=== PATIENT | female | born 1960 | race Caucasian/White ===

== ENCOUNTER → 2016-12-01 | Outpatient (REF) | payer OTHER | LOC: M SFHCLERA 20:34 | PROVIDERS: ATTEND Physician Assistant | DX: L29.0 Pruritus ani (principal) ==

== ENCOUNTER → 2016-12-03 | Outpatient (REF) | payer OTHER | LOC: M SFHCLERA 09:39 | PROVIDERS: ATTEND Physician Assistant | DX: L29.0 Pruritus ani (principal) ==

== ENCOUNTER 2018-07-31 05:47 | Day surgery (SDC) | payer OTHER ==
[2018-07-31] MEDS ORDERED: ACETAMINOPHEN 325 MG TAB PO (06:00)
[2018-07-31] MEDS: PHENYLEPHRINE 2.5% OPHTH SOL 2ML OD (06:15)
[2018-07-31] MEDS: OFLOXACIN 0.3 % (OCUFLOX) OPTH SOL 5ML OD (06:15)
[2018-07-31] MEDS: TROPICAMIDE 1% OPHTH SOLN 2ML OD (06:15)
[2018-07-31] MEDS: CYCLOPENTOLATE 2% OPHTH SOLN 2ML BTL OD (06:15)
[2018-07-31] MEDS: ACETYLCHOLINE OPHTH SOLN 1% 2ML (MIOCHOL-E) As Ordered (06:34)
[2018-07-31] MEDS ORDERED: PHENYLEPHRINE HCL 10 % OPHTH. SOL 5ML OD (07:00)
[2018-07-31] MEDS ORDERED: PROPARACAINE 0.5% OPHTH SOL 15ML OD ×2 (07:01→08:00)
[2018-07-31] MEDS ORDERED: PROPARACAINE 0.5% OPHTH SOL 15ML As Ordered ×2 (07:15→07:17)
[2018-07-31] MEDS ORDERED: MIDAZOLAM INJ 2 MG/2 ML VIAL (J2250) As Ordered ×2 (07:34→07:40)
[2018-07-31] MEDS: POVIDONE-IODINE 5% OPHTH PREP SOL 30ML As Ordered (07:38)
[2018-07-31] MEDS ORDERED: fentaNYL 100 MCG/2 ML INJECTION (J3010) As Ordered (07:40)
[2018-07-31] MEDS: CEFUROXIME 1MG/0.1ML INTRACAMERAL INJ As Ordered (07:44)
[2018-07-31] MEDS: LIDOCAINE 1% SDV 5 ML VIAL As Ordered (07:44)
[2018-07-31] MEDS: BALANCED SALT IRRIGATION SOLUTION 500ML BAG (FOR OR EYE MACHINE) As Ordered (07:45)
[2018-07-31] MEDS: HEALON DUET (HEALON 10MG/ML 0.55ML & HEALON ENDOCOAT 30MG/ML 0.85ML) As Ordered (07:45)
[2018-07-31] MEDS ORDERED: KETOROLAC 0.5% OPHTH SOLN XX (08:00)
[2018-07-31] MEDS ORDERED: AcetaZOLAMIDE 500 MG ER CAP PO (08:00)
[2018-07-31] MEDS ORDERED: TRIMETHOBENZAMIDE 300 MG CAP PO (08:00)
== END 2018-07-31 08:40 | disposition home or self-care (01) ==
LOC: M SDC 05:47
DX: H25.11 Age-related nuclear cataract, right eye (principal); K21.9 Gastro-esophageal reflux disease without esophagitis; I10 Essential (primary) hypertension; F41.9 Anxiety disorder, unspecified; G47.30 Sleep apnea, unspecified; Z79.899 Other long term (current) drug therapy; F17.210 Nicotine dependence, cigarettes, uncomplicated
CPT/HCPCS: 66984

== ENCOUNTER 2019-07-01 10:47 | Emergency (ER) | payer OTHER ==
[~2019-07-01] VITALS: Ht 162.6 cm; Wt 88.6 kg
[~2019-07-01 10:47] MED LIST: AMLO-360 PO; BUPR150T5 PO; HYDR50TAB PO; IBUP80TA; INCR1INH PO; LANS30CA PO; POTA20TA6 PO; PRAM1TAB7 PO
[2019-07-01] MEDS ORDERED: LANS30CA93 (10:58)
[2019-07-01] MEDS ORDERED: SYMB80INH (10:58)
[2019-07-01] MEDS ORDERED: SAXE1INJ (10:58)
[2019-07-01] MEDS ORDERED: NS 500 ML IV ONE (11:15)
[2019-07-01] MEDS ORDERED: KETOROLAC 30 MG/ML VIAL (J1885) IV ONE (11:15)
[2019-07-01 11:40] LABS: BASO % 0.2 % (0.0-1.0); EOS # 0.2 10^3/uL (0.0-0.50); EOS % 1.7 % (0.0-3.0); HEMATOCRIT 38.9 % (36.0-47.0); HEMOGLOBIN 13.6 g/dl (12.0-15.5); LYMPH # 3.2 10^3/uL (1.5-4.5); LYMPH % 25.8 % (24.0-44.0); MEAN CORPUSCULAR HEMOGLOBIN 33.2 pg (27.0-33.0); MEAN CORPUSCULAR VOLUME 94.9 fl (80.0-96.0); MONO # 0.8 10^3/uL (0.0-0.8); MONO % 6.6 % (0.0-5.0); NEUTROPHILS % 65.3 % (36.0-66.0); PLATELET COUNT, AUTOMATED 262 10^3/uL (150-450); WHITE BLOOD COUNT 12.3 10^3/uL (4.0-10.0)
[2019-07-01 12:04] LABS: ALBUMIN 3.6 GM/DL (3.2-5.2); ALT/SGPT 20 U/L (12-78); BILIRUBIN,DIRECT 0.2 MG/DL (0.0-0.2); BILIRUBIN,TOTAL 0.8 MG/DL (0.2-1.0); BLOOD UREA NITROGEN 15 MG/DL (7-18); CALCIUM LEVEL 9.6 MG/DL (8.8-10.2); CARBON DIOXIDE LEVEL 31 MEQ/L (21-32); CHLORIDE LEVEL 103 MEQ/L (98-107); CREATININE FOR GFR 0.67 MG/DL (0.55-1.30); GLOMERULAR FILTRATION RATE > 60.0 (>45); GLUCOSE, FASTING 89 MG/DL (70-100); LIPASE 135 U/L (73-393); POTASSIUM SERUM 3.4 MEQ/L (3.5-5.1); SODIUM LEVEL 140 MEQ/L (136-145); TOTAL PROTEIN 6.5 GM/DL (6.4-8.2)
[2019-07-01] MEDS ORDERED: ISOVUE-370 76% 100ML VIAL (Q9967) As Ordered ONE (12:19)
[2019-07-01] MEDS ORDERED: FLAG500T PO (13:21)
[2019-07-01] MEDS ORDERED: CIPR-249 PO (13:21)
[2019-07-01 13:35] VITALS: BP 129/73
--- NOTE | 2019-07-01 14:17 | REP ---
CT ABDOMEN AND PELVIS WITH IV CONTRAST: TECHNIQUE: Axial contrast enhanced images from the lung bases to the pubic symphysis using 100 mL Isovue 370 intravenous contrast material with multiplanar reformations. Visualized lung bases demonstrate no evidence of acute infiltrate. The liver, gallbladder, spleen, adrenals, pancreas, and kidneys are unremarkable. There is no hydronephrosis. There is no abdominal aortic aneurysm. There is no adenopathy, free air or free fluid. There is diffuse thickening of the right colon consistent with nonspecific colitis. There is pericolonic fat stranding. The appendix is normal in appearance, with no evidence of appendicitis. No pelvic mass is seen. Urinary bladder is mildly distended and grossly unremarkable. There are mild degenerative changes of the spine. IMPRESSION: Diffuse nonspecific colitis of the right colon. No evidence of appendicitis. No free air or free fluid. Electronically Signed by Gerardo Garner MD 07/02/2019 09:35 A
== END 2019-07-01 13:37 | disposition home or self-care (01) ==
LOC: M ED 10:47
DX: A04.9 Bacterial intestinal infection, unspecified (principal); K21.9 Gastro-esophageal reflux disease without esophagitis; G25.81 Restless legs syndrome; Z79.899 Other long term (current) drug therapy; Z88.0 Allergy status to penicillin; Z88.4 Allergy status to anesthetic agent
CPT/HCPCS: 74177; 80048; 80076; 83690; 85025; 96361; 96374; 99284; J1885; Q9967

== ENCOUNTER → 2019-11-21 | Outpatient (REF) | payer OTHER ==
[~2019-11-21] MED LIST changes: +CIPR-249 PO; +FLAG500T PO; +LANS30CA93; +SAXE1INJ; +SYMB80INH
== END ==
LOC: M LAB REF 09:23
PROVIDERS: ATTEND Ophthalmology
DX: H02.834 Dermatochalasis of left upper eyelid (principal); H02.831 Dermatochalasis of right upper eyelid

== ENCOUNTER → 2020-01-10 | Outpatient (REF) | payer OTHER | LOC: M SFHCLERA 11:58 | PROVIDERS: ATTEND Physician Assistant | DX: R05 Cough (principal) ==

== ENCOUNTER 2021-08-21 09:04 | Emergency (ER) | payer OTHER ==
[~2021-08-21] VITALS: Ht 162.6 cm; Wt 100.6 kg
--- NOTE | 2021-08-21 09:42 | REP ---
INDICATION: CHEST PAIN. COMPARISON: None. TECHNIQUE: PA and lateral FINDINGS: The superior mediastinal structures are midline. The cardiac silhouette is unremarkable in size, shape, and position. The diaphragmatic surfaces of the lungs are regular, and the costophrenic angles are clear. The pulmonary taylor are clear. The imaged osseous structures are intact. IMPRESSION: There is no acute cardiopulmonary disease. <Electronically signed by Cody Hector > 08/21/21 0938
[2021-08-21 09:45] LABS: BASO % 0.5 % (0.0-1.0); EOS # 0.3 10^3/uL (0.0-0.5); EOS % 3.2 % (0.0-3.0); HEMATOCRIT 43.3 % (36.0-47.0); HEMOGLOBIN 14.4 g/dl (12.0-15.5); LYMPH # 2.9 10^3/uL (1.5-5.0); LYMPH % 37.2 % (24.0-44.0); MEAN CORPUSCULAR HEMOGLOBIN 31.6 pg (27.0-33.0); MEAN CORPUSCULAR HGB CONC 33.3 g/dl (32.0-36.5); MEAN CORPUSCULAR VOLUME 95.2 fl (80.0-96.0); MONO # 0.7 10^3/uL (0.0-0.8); MONO % 8.5 % (2.0-8.0); NEUTROPHILS # 3.9 10^3/uL (1.5-8.5); NEUTROPHILS % 50.2 % (36.0-66.0); PLATELET COUNT, AUTOMATED 320 10^3/uL (150-450); RED BLOOD COUNT 4.55 10^6/uL (4.00-5.40); WHITE BLOOD COUNT 7.8 10^3/uL (4.0-10.0)
[2021-08-21 10:14] LABS: ALBUMIN 3.8 GM/DL (3.2-5.2); ALT/SGPT 28 U/L (12-78); BILIRUBIN,DIRECT 0.1 MG/DL (0.0-0.2); BILIRUBIN,TOTAL 0.6 MG/DL (0.2-1.0); BLOOD UREA NITROGEN 22 MG/DL (7-18); CALCIUM LEVEL 9.6 MG/DL (8.8-10.2); CARBON DIOXIDE LEVEL 29 MEQ/L (21-32); CHLORIDE LEVEL 107 MEQ/L (98-107); CK-MB VALUE MASS 2.7 NG/ML (<3.6); CPK CREATINE PHOSPHOKINASE 112 U/L (26-192); CREATININE FOR GFR 0.89 MG/DL (0.55-1.30); FREE T4 1.01 NG/DL (0.76-1.46); GLOMERULAR FILTRATION RATE > 60.0 (>45); GLUCOSE, FASTING 100 MG/DL (70-100); LIPASE 133 U/L (73-393); MB/CK RELATIVE INDEX 2.41 (< OR =4); POTASSIUM SERUM 4.1 MEQ/L (3.5-5.1); SODIUM LEVEL 141 MEQ/L (136-145); TOTAL PROTEIN 7.1 GM/DL (6.4-8.2); TROPONIN I < 0.02 NG/ML (< 0.10)
[2021-08-21] MEDS ORDERED: ASPIRIN 81 MG CHEW TABLET PO ONE (10:15)
[2021-08-21] MEDS ORDERED: NITROGLYCERIN 0.4 MG SUBL TABLET SL PRN (10:15)
[2021-08-21] MEDS ORDERED: ACETAMINOPHEN TAB 650MG DOSE (2X325MG) PO ONE (10:30)
[2021-08-21] MEDS ORDERED: ISOVUE-370 76% 100ML VIAL As Ordered ONE (10:30)
[2021-08-21 10:33] VITALS: BP 169/89
--- NOTE | 2021-08-21 11:10 | REP ---
INDICATION: chest pain COMPARISON: None. TECHNIQUE: CT angiography of the chest after the intravenous administration of 75 cc Isovue 370. Attention pulmonary arteries. FINDINGS: There is excellent visualization of the pulmonary arterial vasculature. No focal filling defects are present that would be considered consistent with acute pulmonary emboli. There is no mediastinal or hilar adenopathy. The thoracic aorta is within normal limits. There are no pleural or pericardial effusions. The imaged upper abdomen and imaged osseous structures are within normal limits. Evaluation of the lung taylor shows no abnormal nodules, masses, or opacities. IMPRESSION: CT findings are within normal limits. <Electronically signed by Cody Hector > 08/21/21 1101
[2021-08-21 13:12] VITALS: BP 116/78
[2021-08-21 15:50] LABS: CK-MB VALUE MASS 2.9 NG/ML (<3.6); CPK CREATINE PHOSPHOKINASE 89 U/L (26-192); MB/CK RELATIVE INDEX 3.26 (< OR =4); TROPONIN I < 0.02 NG/ML (< 0.10)
--- NOTE | 2021-08-22 05:52 | ECGEPIP ---
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
--- NOTE | 2021-08-22 05:56 | ECGEPIP ---
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
== END 2021-08-21 17:11 | disposition home or self-care (01) ==
LOC: M ED 09:04
DX: R07.9 Chest pain, unspecified (principal); I10 Essential (primary) hypertension; J45.909 Unspecified asthma, uncomplicated; K21.9 Gastro-esophageal reflux disease without esophagitis; G25.81 Restless legs syndrome; Z79.899 Other long term (current) drug therapy; Z88.0 Allergy status to penicillin; Z88.4 Allergy status to anesthetic agent; Z88.8 Allergy status to other drugs, medicaments and biological substances; F17.210 Nicotine dependence, cigarettes, uncomplicated
CPT/HCPCS: 36415; 71046; 71275; 80048; 80076; 82550; 82553; 83690; 84439; 84443; 84484; 85025; 93005; 93041; 94760; 99285; Q9967